=== PATIENT | male | born 1960 | race Caucasian/White ===

== ENCOUNTER 2022-04-21 11:55 | Outpatient (CLI) | payer OTHER ==
[~2022-04-21] VITALS: Ht 175.3 cm; Wt 77.1 kg
[2022-04-21] MEDS ORDERED: ATOR20TA66 PO (13:11)
== END 2022-04-21 13:16 | disposition home or self-care (01) ==
LOC: PREOP 11:55
PROVIDERS: ATTEND Surgery
DX: Z01.818 Encounter for other preprocedural examination (principal)

== ENCOUNTER 2022-04-23 09:15 | Day surgery (SDC) | payer BC ==
[~2022-04-23] VITALS: Ht 175 cm; Wt 77.1 kg
[~2022-04-23 09:15] MED LIST: ATOR20TA66 PO
[2022-04-23] MEDS ORDERED: LACTATED RINGERS 1,000 ML IV STA (09:17)
[2022-04-23] MEDS ORDERED: LIDOCAINE JELLY 2% 6 ML SYRINGE MM PRN (09:30)
[2022-04-23 09:40] VITALS: BP 129/78
[2022-04-23] MEDS ORDERED: PROPOFOL INJECTION 50 ML IV ONE (09:54)
[2022-04-23 11:10] VITALS: BP 111/65
--- NOTE | 2022-04-23 11:12 | Anesthesia-General Post-Op ---
MAC Patient Condition Mental Status/LOC: Same as Preop Cardiovascular: Satisfactory Nausea/Vomiting: Absent Respiratory: Satisfactory Pain: Controlled Complications: Absent Post Op Complications Complications None Follow Up Care/Instructions Patient Instructions None needed. Anesthesiology Discharge Order Discharge Order Patient is doing well, no complaints, stable vital signs, no apparent adverse anesthesia problems. No complications reported per nursing. RAMIRO WINSTON CRNA April 23, 2022 11:12
--- NOTE | 2022-04-23 11:14 | Progress Note-Pre Operative ---
Pre-Operative Progress Note H&P Reviewed The H&P was reviewed, patient examined and no changes noted. Date Seen by Provider: April 23, 2022 Time Seen by Provider: 10:00 Date H&P Reviewed: April 23, 2022 Time H&P Reviewed: 10:00 Pre-Operative Diagnosis: screening o DENISHA CONTRERAS MD April 23, 2022 11:14
[2022-04-23 11:15] VITALS: BP 141/77
[2022-04-23] MEDS ORDERED: ONDANSETRON 4 MG/2 ML (SDV) Z0FRAN IVP PRN (11:15)
[2022-04-23] MEDS ORDERED: ONDANSETRON 4 MG (ZOFRAN) ORAL DISSOLVE TAB PO PRN (11:15)
--- NOTE | 2022-04-23 11:15 | Progress Note-Post Operative ---
Post-Operative Progess Note Surgeon (s)/Mercerizing Range Feeder (s) Surgeon DENISHA CONTRERAS MD Mercerizing Range Feeder: none Pre-Operative Diagnosis screening colo Post-Operative Diagnosis mild chronic stage 2 ext and int hemorrhoids, mild sigmoid diverticulosis. Procedure & Operative Findings Date of Procedure 04/23/22 Procedure Performed/Findings colonoscopy Anesthesia Type mac Estimated Blood Loss Estimated blood loss (mL): minimal Specimens/Packing Specimens Removed none DENISHA CONTRERAS MD April 23, 2022 11:15
--- NOTE | 2022-04-23 11:16 | Discharge Inst-Surgical ---
D/C Lap Instructions-DIANE Follow Up 10yrs or PRN Activity as tolerated Regular Diet Symptoms to Report: Fever over 101 degree F, Nausea/Vomiting Infection Signs and Symptoms to report: Increased redness, Foul odor of wound, Increased drainage Bathing instructions: May shower Operative Area Clean/Dry; Keep incision clean/dry If any problems/questions: Contact your physician or go to Emergency Room DENISHA CONTRERAS MD April 23, 2022 11:16
[2022-04-23 11:35] VITALS: BP 141/82
[2022-04-23 11:42] VITALS: BP 141/82
--- NOTE | 2022-04-23 19:53 | OPERATIVE REPORT ---
DATE OF SERVICE: 04/23/2022 ATTENDING PRIMARY CARE PHYSICIAN: Dr. Jorge Tamez. PREOPERATIVE DIAGNOSIS: Screening colonoscopy. POSTOPERATIVE DIAGNOSIS: Mild chronic stage II external and internal hemorrhoids, mild sigmoid diverticulosis. PROCEDURE: Colonoscopy. SURGEON: Denisha Contreras MD ANESTHESIA: Monitored anesthesia care. ESTIMATED BLOOD LOSS: Minimal. FINDINGS: Mild chronic stage II external and internal hemorrhoids, mild sigmoid diverticulosis. DISPOSITION: The patient tolerated the procedure well. INDICATIONS: The patient is a 61-year-old male referred over to us for screening colonoscopy. He has not had a colonoscopy up to this point in his life. He states that he is otherwise doing well, does not report any major issues with diarrhea nor constipation as well as no red blood per rectum nor any dark tarry stools. He also does not report any family history of colon cancer. DESCRIPTION OF PROCEDURE: The patient was brought to the endoscopy suite, laid in the left lateral decubitus position. After adequate IV pain and sedative medications and monitored anesthesia care, a digital rectal examination was performed. There were also number of inclusion cysts that were not infected. Normal sphincter tone was felt and there were no palpable masses. Prostate gland was palpable and appeared normal. The endoscope was then intubated to anus and rectum gently insufflated. The endoscope was then advanced to the valves of Drake of the rectum with no polyps or any neoplasms identified. We then proceeded through the sigmoid colon where mild sigmoid diverticulosis identified. The endoscope was then advanced through the remainder of the descending, transverse and ascending colon to the cecum, which were normal. There were no polyps or any neoplasms identified throughout the colon or rectum. The endoscope was then slowly withdrawn while taking a second look and suctioning of residual air with no additional findings. The patient tolerated the procedure well. We will recommend medical management with a high fiber diet with at least 30 grams of fiber daily as well as significant amounts of water to promote soft stools on a daily basis. If he is asymptomatic, he does not need another colonoscopy for another 10 years. Job ID: [id number] DocumentID: [id number] Dictated Date: 04/23/2022 11:10:17 [employer] Date: 04/23/2022 19:52:24 Dictated By: DENISHA CONTRERAS MD
== END 2022-04-23 11:42 | disposition home or self-care (01) ==
LOC: ENDO 09:15
PROVIDERS: ATTEND Surgery
DX: Z12.11 Encounter for screening for malignant neoplasm of colon (principal); K57.30 Diverticulosis of large intestine without perforation or abscess without bleeding; K64.1 Second degree hemorrhoids; K64.4 Residual hemorrhoidal skin tags; K62.89 Other specified diseases of anus and rectum; F17.210 Nicotine dependence, cigarettes, uncomplicated; Z79.82 Long term (current) use of aspirin